=== PATIENT | female | born 1985 | race Caucasian/White ===

== ENCOUNTER 2019-10-31 03:11 | Emergency (ER) | payer SELFPAY ==
[~2019-10-31] VITALS: Ht 154.9 cm; Wt 70.8 kg
[~2019-10-31 03:11] MED LIST: FERR-252 PO; PREN1SGL25 PO
[2019-10-31 03:16] VITALS: BP 122/84
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
--- NOTE | 2019-10-31 03:21 | NUR ---
PT AMBULATED TO BED 11, STEADY GAIT.
--- NOTE | 2019-10-31 03:30 | NUR ---
Ermelinda guerin in [facility] - 10/31/19 at [address] Robles examining patient.
--- NOTE | 2019-10-31 03:32 | NUR ---
ADIEL WRAP PLACED ON PT R KNEE. +CSM
[2019-10-31 03:42] VITALS: BP 122/84
--- NOTE | 2019-10-31 03:42 | NUR ---
Patient discharged with v/s stable. Written and verbal after care instructions given and explained. Patient verbalized understanding. Ambulatory with steady gait. All questions addressed prior to discharge. Advised to follow up with PMD.
== END 2019-10-31 03:42 | disposition home or self-care (01) ==
LOC: MED 03:11
DX: M71.9 Bursopathy, unspecified (principal); F17.210 Nicotine dependence, cigarettes, uncomplicated; Z79.899 Other long term (current) drug therapy
CPT/HCPCS: 81002; 81025; 99281; 99282